=== PATIENT | female | born 1965 ===

== ENCOUNTER → 2018-07-30 19:49 | Outpatient (REF) | payer OTHER, SELFPAY ==
[2018-07-30 20:44] LABS: RBC Urine None Seen (0-5/HPF); WBC Urine None Seen (0-5/HPF)
[2018-07-30 21:22] LABS: Add Manual Diff / Slide Review NO; Basophils Absolute Auto 0 /uL (0-100); Basophils Percent Auto 0.7 % (0-2); Eosinophils Absolute Auto 200 /uL (0-450); Eosinophils Percent Auto 2.6 % (2-4); Hematocrit 38.4 % (36-46); Hemoglobin 13.1 g/dL (12.0-16.0); Lymphocytes Absolute Auto 1500 /uL (1100-4500); Mean Corpuscular HGB Conc 34.2 % (30-36); Mean Corpuscular Hemoglobin 36.7 PG (26-34); Mean Corpuscular Volume 107.3 fL (80-100); Monocytes Absolute Auto 400 /uL (0-900); Neutrophils Absolute Auto 4600 /uL (1500-7000); Neutrophils Percent Auto 68.7 % (50-75); Platelet Count 282 X10^3/uL (150-400); Red Blood Cell Count 3.58 X10^6/uL (4.0-5.2); Red Cell Distribution Width 13.3 % (11.6-14.8); White Blood Cell Count 6.6 X10^3/uL (4.5-11.0)
[2018-07-30 22:26] LABS: Appearance Urine UA CLEAR; Bilirubin Urine UA NEGATIVE (NEGATIVE); Color Urine UA YELLOW; Glucose Urine UA NEGATIVE (Negative); Ketones Urine UA NEGATIVE (NEGATIVE); Leukocyte Esterase Urine UA NEGATIVE (NEGATIVE); Nitrite Urine UA NEGATIVE (Negative); Occult Blood Urine UA NEGATIVE (Negative); Protein Urine UA NEGATIVE (Negative); Specific Gravity Urine UA >=1.030 (1.000-1.035); Urobilinogen Urine UA 0.2 E.U./dL (0.2)
[2018-07-31 00:27] LABS: Alanine Aminotransferase 29 IU/L (9-52); Albumin 4.6 g/dL (3.5-5.0); Albumin Globulin Ratio 1.4 (1.0-2.8); Alkaline Phosphatase 106 U/L (38-126); Aspartate Aminotransferase 42 IU/L (14-36); BUN Creatinine Ratio 26.7 (6-22); Bilirubin Direct 0.2 mg/dL (0.0-0.4); Bilirubin Total 0.4 mg/dL (0.2-1.3); Bilirubin Unconjugated 0.1 mg/dL (0.0-1.1); Blood Urea Nitrogen 16 mg/dL (7-17); Calcium 9.9 mg/dL (8.4-10.2); Carbon Dioxide 24 mmol/L (22-32); Chloride 102 mmol/L (98-107); Cholesterol 270 mg/dL (140-199); Estimated Glomerular Filt Rate > 60.0 mL/min (>60); Globulin 3.4 g/dL (1.7-4.1); Glucose 142 mg/dL (70-100); HDL Cholesterol 91 mg/dL (40-60); HEMOLYSIS 25 (0-50); LDL Cholesterol Calculated 116 mg/dL (<100); Potassium 3.6 mmol/L (3.4-5.1); Sodium 139 mmol/L (137-145); Triglycerides 313 mg/dL (35-150)
[2018-07-31 01:02] LABS: Ferritin 76.2 ng/mL (11.1-264)
[2018-07-31 01:43] LABS: Bacteria Urine Few (2-10); Culture Indicated Urine Cult Not Indicated; Squamous Epithelial Cell Urine 1-5 /HPF (0-5/HPF)
[2018-07-31 02:11] LABS: Hep C Virus Ab w/Reflex Quant NEGATIVE s/c (NEGATIVE); Hepatitis B Surface Antigen NEGATIVE s/c (NEGATIVE)
[2018-07-31 02:12] LABS: HEMOLYSIS 28 (0-50)
[2018-07-31 02:49] LABS: TSH w/ Reflex to FT4 1.15 uIU/mL (0.47-4.68)
[2018-07-31 04:42] LABS: Iron 122 ug/dL (37-170)
[2018-07-31 05:00] LABS: Percent Iron Saturation 43 % (15-50); Total Iron Binding Capacity 281 ug/dL (265-497); Transferrin 245 mg/dL (206-381)
[2018-08-01 18:41] LABS: Hepatitis B Surf AB Imm QUANT < 5 mIU/mL (> 9)
[2018-08-02 16:29] LABS: ANA Screen, IFA Negative (Negative)
[2018-08-04 14:59] LABS: Immunoglobulin A 349 mg/dL (81-463)
[2018-08-04 15:02] LABS: Ceruloplasmin 37 mg/dL (18-53)
[2018-08-04 15:24] LABS: Hepatitis A Antibody IgM Nonreactive (Nonreactive)
== END ==
LOC: LAB 19:49
PROVIDERS: Visit Provider Physician Assistant
DX: R76.0 Raised antibody titer (principal); Z01.84 Encounter for antibody response examination; B18.2 Chronic viral hepatitis C; D80.2 Selective deficiency of immunoglobulin A [IgA]; R94.5 Abnormal results of liver function studies; E83.01 Wilson's disease; B18.1 Chronic viral hepatitis B without delta-agent; R82.90 Unspecified abnormal findings in urine; R79.89 Other specified abnormal findings of blood chemistry; E07.9 Disorder of thyroid, unspecified; E78.5 Hyperlipidemia, unspecified
CPT/HCPCS: 36415; 80053; 80061; 80076; 81001; 82248; 82390; 82728; 82784; 83516; 83540; 83550; 84443; 85025; 86038; 86317; 86709; 86803; 87340